=== PATIENT | male | born 1940 | race Caucasian/White ===

== ENCOUNTER 2021-09-01 10:00 | Emergency (ER) | payer MEDICARE, BC ==
[2021-09-01] MEDS ORDERED: Sodium Chloride 0.9% 10 ML Syringe FLUSH PRN (10:35)
[2021-09-01] MEDS ORDERED: Sodium Chloride 0.9% 10 ML Syringe FLUSH ONE (13:10)
[2021-09-01] MEDS ORDERED: Iopamidol 612 MG/ML 100 ML Bottle IVPUSH ONE (13:10)
[2021-09-01] MEDS ORDERED: Apixaban 5 MG Tab PO ONE (14:19)
== END 2021-09-01 14:50 | disposition home or self-care (01) ==
LOC: JD.ED 10:00
DX: U07.1 COVID-19 (principal); J12.82 Pneumonia due to coronavirus disease 2019; I26.99 Other pulmonary embolism without acute cor pulmonale; Z79.01 Long term (current) use of anticoagulants
CPT/HCPCS: 36415; 71275; 85379; 86140; 94667; 99284; A9270; Q9967; 99285